=== PATIENT | female | born 1945 | race Caucasian/White ===

== ENCOUNTER 2020-06-01 11:40 | Inpatient (IN) | payer OTHER ==
[~2020-06-01] VITALS: Ht 167.6 cm; Wt 117.9 kg
[2020-06-01 12:14] LABS: HEMOGLOBIN 12.1 gm/dl (12.3-15.3); RED BLOOD COUNT 5.08 M/UL (4.00-5.10); WHITE BLOOD COUNT 8.5 K/UL (4.5-11.0)
[2020-06-01 12:40] LABS: BUN/CREATININE RATIO 18 (0-10)
[2020-06-01 22:44] LABS: HEMOGLOBIN 11.5 gm/dl (12.3-15.3); RED BLOOD COUNT 4.77 M/UL (4.00-5.10)
[2020-06-01 22:46] LABS: WHITE BLOOD COUNT 16.9 K/UL (4.5-11.0)
[2020-06-02 03:18] LABS: RED BLOOD COUNT 4.96 M/UL (4.00-5.10); WHITE BLOOD COUNT 18.6 K/UL (4.5-11.0)
--- NOTE | 2020-06-02 04:46 | NUR ---
06/01/20 2300 pT ARRIVED TO FLOOR BY WAY OF BED FROM SURGERY. PT AWAKE BUT SLIGHTLY DROWSY. EXTERNAL FIXATION NOTED TO RIGHT FOOT AND LEG. WOUND VAC IN PLACE BLOOD DRAINAGE NOTED TO WOUND VAC TUBING. PT DENIES ANY PAIN AT THIS TIME.
--- NOTE | 2020-06-02 04:48 | NUR ---
06/02/20 0001 ASSESSMENT PART 2 DONE AT THIS TIME UNABLE TO CHANGE TIME ON IT. ACCU CHECK 254, NO INSULIN GIVEN DUE TO PT HAS NOT EATEN. DENIES WANTING ANYTHING TO EAT.
--- NOTE | 2020-06-02 04:50 | NUR ---
06/01/20 2345 SCUD APPLIED TO RIGHT LEG.
--- NOTE | 2020-06-02 06:04 | NUR ---
06/01/20 0455 PT HAS NOT VOIDED. BLADDER SCAN SHOWED 529ML. [facility]
[2020-06-02] MEDS ORDERED: CATAPRES 0.1MG0.1 MG PO (09:46)
[2020-06-02] MEDS ORDERED: B-COMPLEX WITH1 EAC1 PO (09:48)
[2020-06-02] MEDS ORDERED: FOLIC ACID0.8 MG PO (09:48)
[2020-06-02] MEDS ORDERED: BENADRYL25 MG PO (09:49)
[2020-06-02] MEDS ORDERED: SYNTHROID150 MCG PO (09:50)
[2020-06-02] MEDS ORDERED: REQUIP0.25 MG PO (09:50)
[2020-06-02] MEDS ORDERED: LINZESS145 MCG PO (09:50)
[2020-06-02] MEDS ORDERED: AMIODARONE HCL200 MG PO (09:51)
[2020-06-02] MEDS ORDERED: TRELEGY ELLIPT1 EACH INH (09:51)
[2020-06-02] MEDS ORDERED: LIPITOR40 MG PO (09:52)
[2020-06-02] MEDS ORDERED: NEURONTIN300 MG PO (09:52)
[2020-06-02] MEDS ORDERED: ZYLOPRIM 100 M100 MG PO (09:53)
[2020-06-02] MEDS ORDERED: LOPRESSOR 50 MG50 MG PO (09:53)
[2020-06-02] MEDS ORDERED: PROTONIX40 MG PO (09:53)
[2020-06-02] MEDS ORDERED: SINGULAIR10 MG PO (09:54)
[2020-06-02] MEDS ORDERED: ELIQUIS2.5 MG PO (09:55)
[2020-06-02] MEDS ORDERED: ZANAFLEX4 MG PO (09:55)
[2020-06-02] MEDS ORDERED: AMARYL4 MG PO (10:08)
[2020-06-02] MEDS ORDERED: K-DUR TAB 20 M20 MEQ PO (10:15)
[2020-06-02] MEDS ORDERED: LASIX 40 MG TAB40 MG PO (10:22)
[2020-06-02] MEDS ORDERED: NOVOLOG MI100 UNIT/1 SC (10:26)
[2020-06-03 06:07] LABS: HEMOGLOBIN 9.2 gm/dl (12.3-15.3); RED BLOOD COUNT 3.86 M/UL (4.00-5.10); WHITE BLOOD COUNT 9.1 K/UL (4.5-11.0)
[2020-06-05 03:39] LABS: HEMOGLOBIN 9.1 gm/dl (12.3-15.3); RED BLOOD COUNT 3.81 M/UL (4.00-5.10)
[2020-06-05 03:44] LABS: WHITE BLOOD COUNT 6.8 K/UL (4.5-11.0)
[2020-06-08 03:49] LABS: RED BLOOD COUNT 3.82 M/UL (4.00-5.10)
[2020-06-08 04:25] LABS: BUN/CREATININE RATIO 14 (0-10)
[2020-06-09 10:01] LABS: HEMOGLOBIN 9.8 gm/dl (12.3-15.3); RED BLOOD COUNT 4.07 M/UL (4.00-5.10); WHITE BLOOD COUNT 7.8 K/UL (4.5-11.0)
[2020-06-11 03:55] LABS: HEMOGLOBIN 9.7 gm/dl (12.3-15.3); RED BLOOD COUNT 4.06 M/UL (4.00-5.10); WHITE BLOOD COUNT 7.4 K/UL (4.5-11.0)
--- NOTE | 2020-06-11 11:32 | NUR ---
PATIENT PULSE OX SEVERAL CHANGES FROM 70'S TO 80'S AND HAVE LOWEST TO G0'S. CONTACTED RESPIRATORY FOR ASSISTANCE DURING THIS TIME. REPORTED PATIENT TO DR. ALBA AND RECEIVED ORDER. PATIENT ON HIGH FLOW 12L OXYGEN AND NO S/SX OF RESPIRATORY INSUFFICIENCY AT THIS TIME. WILL CONT TO MONITOR
--- NOTE | 2020-06-11 12:10 | NUR ---
PATIENT BREATHING WITH NO DIFFICULTY, PULSE OX 93 HIGH FLOW 12 LITERSN IN PLACED.
--- NOTE | 2020-06-11 12:32 | NUR ---
reported dr. matos of abg result and stated will check the result himself
--- NOTE | 2020-06-11 12:36 | NUR ---
dr. matos called back and stated he will write order for patient to have bipap and for me to [id number] RT. notified RT and acknowledged
[2020-06-12 04:28] LABS: HEMOGLOBIN 9.3 gm/dl (12.3-15.3); RED BLOOD COUNT 3.95 M/UL (4.00-5.10); WHITE BLOOD COUNT 7.9 K/UL (4.5-11.0)
[2020-06-12 10:56] LABS: HEMOGLOBIN 9.1 gm/dl (12.3-15.3); RED BLOOD COUNT 3.94 M/UL (4.00-5.10); WHITE BLOOD COUNT 7.1 K/UL (4.5-11.0)
[2020-06-13 03:37] LABS: HEMOGLOBIN 9.1 gm/dl (12.3-15.3); RED BLOOD COUNT 3.92 M/UL (4.00-5.10); WHITE BLOOD COUNT 7.7 K/UL (4.5-11.0)
[2020-06-14 03:44] LABS: HEMOGLOBIN 8.9 gm/dl (12.3-15.3); RED BLOOD COUNT 3.76 M/UL (4.00-5.10)
[2020-06-15 06:00] LABS: HEMOGLOBIN 9.2 gm/dl (12.3-15.3); RED BLOOD COUNT 3.74 M/UL (4.00-5.10); WHITE BLOOD COUNT 8.1 K/UL (4.5-11.0)
[2020-06-15 06:21] LABS: BUN/CREATININE RATIO 17 (0-10)
[2020-06-16 03:08] LABS: HEMOGLOBIN 9.1 gm/dl (12.3-15.3); RED BLOOD COUNT 3.82 M/UL (4.00-5.10); WHITE BLOOD COUNT 8.3 K/UL (4.5-11.0)
[2020-06-17 05:01] LABS: HEMOGLOBIN 8.8 gm/dl (12.3-15.3); RED BLOOD COUNT 3.81 M/UL (4.00-5.10); WHITE BLOOD COUNT 7.3 K/UL (4.5-11.0)
[2020-06-18 05:39] LABS: BUN/CREATININE RATIO 24 (0-10)
--- NOTE | 2020-06-18 17:31 | NUR ---
CHANGED PT DRESSING TODAY BETADINE TO PIN SITES VASELINE GAUZE, KERLEX W/ KENYA WRAP APPLIED PT ALSO HAD STAGE 1 ON COCCYX CHANGED AND WAFFLE MATTRESS APPLIED.
[2020-06-19 03:53] LABS: HEMOGLOBIN 9.2 gm/dl (12.3-15.3); RED BLOOD COUNT 3.86 M/UL (4.00-5.10); WHITE BLOOD COUNT 6.5 K/UL (4.5-11.0)
[2020-06-21 05:56] LABS: BUN/CREATININE RATIO 18 (0-10)
[2020-06-22 04:43] LABS: BUN/CREATININE RATIO 20 (0-10)
[2020-06-25] MEDS ORDERED: HYDROCODON-ACE1 EAC2 PO (10:46)
[2020-06-25] MEDS ORDERED: DOCUSATE SODIU100 MG PO (10:46)
[2020-06-25] MEDS ORDERED: POLYETHYLENE GL17 GM PO (10:46)
[2020-06-25] MEDS ORDERED: FUROSEMIDE40 MG PO (10:46)
[2020-06-25] MEDS ORDERED: ELIQUIS2.5 MG PO (10:46)
[2020-08-18] MEDS ORDERED: AMIODARONE HCL200 MG PO (06:56)
[2020-08-18] MEDS ORDERED: ALLOPURINOL100 MG PO (06:56)
[2020-08-18] MEDS ORDERED: LINZESS145 MCG PO (06:57)
[2020-08-18] MEDS ORDERED: LIPITOR40 MG PO (06:57)
[2020-08-18] MEDS ORDERED: FOLIC ACID0.8 MG PO (06:57)
[2020-08-18] MEDS ORDERED: BENADRYL ALLERG25 MG PO (06:57)
[2020-08-18] MEDS ORDERED: [UNRECOGNIZED DRUG - CODE] SQ (06:58)
[2020-08-18] MEDS ORDERED: NOVOLIN 70100 UNIT/1 SQ (06:58)
[2020-08-18] MEDS ORDERED: PROTONIX 40 MG40 M1 PO (06:59)
[2020-08-18] MEDS ORDERED: ROPINIROLE HC0.25 MG PO (06:59)
[2020-08-18] MEDS ORDERED: POTASSIUM CHLO20 ME1 PO (06:59)
[2020-08-18] MEDS ORDERED: SINGULAIR10 MG PO (07:00)
[2020-08-18] MEDS ORDERED: TRELEGY ELLIPT1 EACH INH (07:00)
[2020-08-18] MEDS ORDERED: SYNTHROID150 MCG PO (07:00)
[2020-08-18] MEDS ORDERED: VITAMIN B COMP1 EAC1 PO (07:00)
[2020-08-18] MEDS ORDERED: ZANAFLEX4 MG PO (07:00)
[2020-08-18] MEDS ORDERED: ELIQUIS5 MG PO (07:01)
[2020-08-18] MEDS ORDERED: COLACE 100MG C100 MG PO (07:01)
[2020-08-18] MEDS ORDERED: GLIMEPIRIDE4 MG PO (07:01)
[2020-08-18] MEDS ORDERED: LOPRESSOR50 MG PO (07:02)
[2020-08-18] MEDS ORDERED: CLONIDINE HCL0.1 MG PO (07:02)
[2020-08-18] MEDS ORDERED: LASIX40 MG PO (07:02)
[2020-08-18] MEDS ORDERED: NEURONTIN300 MG PO (07:03)
[2020-08-18] MEDS ORDERED: BUSPIRONE HCL5 MG PO (07:03)
[2020-08-18] MEDS ORDERED: DULCOLAX SUPPOSITORY PO (07:03)
[2020-08-18] MEDS ORDERED: MIRALAX17 GM PO (07:04)
[2020-08-18] MEDS ORDERED: COMBIVENT RESPIM4 GM INH (07:04)
[2020-08-18] MEDS ORDERED: HYDROCODON-ACE1 EAC6 PO (07:16)
== END 2020-06-25 19:33 | DRG 463 ==
LOC: ER1 11:40 → CDU 16:03 → M/S 16:03
PROVIDERS: Internal Medicine; Internal Medicine Pulmonary Disease; Orthopaedic Surgery; Physician Assistant; Student in an Organized Health Care Education/Training Program; ADMIT Internal Medicine Infectious Disease
PROC: 0HRMXK3 Replacement of Right Foot Skin with Nonautologous Tissue Substitute, Full Thickness, External Approach (ICD-10-PCS; principal; 2020-06-01 19:00)
PROC: 0QSG04Z Reposition Right Tibia with Internal Fixation Device, Open Approach (ICD-10-PCS; 2020-06-01 19:00)
DX: S82.851B Displaced trimalleolar fracture of right lower leg, initial encounter for open fracture type I or II (principal); J96.21 Acute and chronic respiratory failure with hypoxia; J96.22 Acute and chronic respiratory failure with hypercapnia; J18.9 Pneumonia, unspecified organism; N17.9 Acute kidney failure, unspecified; J44.0 Chronic obstructive pulmonary disease with (acute) lower respiratory infection; J44.1 Chronic obstructive pulmonary disease with (acute) exacerbation; J98.11 Atelectasis; W01.0XXA Fall on same level from slipping, tripping and stumbling without subsequent striking against object, initial encounter; I12.9 Hypertensive chronic kidney disease with stage 1 through stage 4 chronic kidney disease, or unspecified chronic kidney disease; E11.22 Type 2 diabetes mellitus with diabetic chronic kidney disease; G47.33 Obstructive sleep apnea (adult) (pediatric); E78.5 Hyperlipidemia, unspecified; I48.91 Unspecified atrial fibrillation; E03.9 Hypothyroidism, unspecified; E11.42 Type 2 diabetes mellitus with diabetic polyneuropathy; E66.01 Morbid (severe) obesity due to excess calories; I87.8 Other specified disorders of veins; N18.30 Chronic kidney disease, stage 3 unspecified; E11.40 Type 2 diabetes mellitus with diabetic neuropathy, unspecified; K59.00 Constipation, unspecified; Z68.30 Body mass index [BMI] 30.0-30.9, adult; Z79.01 Long term (current) use of anticoagulants; Y93.89 Activity, other specified; Y92.89 Other specified places as the place of occurrence of the external cause; Z90.49 Acquired absence of other specified parts of digestive tract; Z90.710 Acquired absence of both cervix and uterus; Z83.3 Family history of diabetes mellitus
CPT/HCPCS: ECHO; 0240U; 27788; 36415; 36600; 70450; 71045; 71250; 72125; 72128; 72131; 72170; 73590; 73600; 76000; 80048; 80053; 80202; 82803; 82962; 83605; 85025; 85610; 85730; 86140; 86850; 86900; 86901; 90471; 90714; 90715; 93005; 93306; 93971; 94640; 94660; 94664; 94668; 94760; 97110; 97110-GP-CQ; 97162; 97167; 97530; 97530-GP-CQ; 99285; A6212; C1713; G0480; J0295; J0690; J1100; J1580; J1940; J2001; J2185; J2250; J2270; J2405; J2550; J2704; J3010; J3370; J7030; J7070; J7120; Q4133; U0002

== ENCOUNTER → 2020-08-18 | Day surgery (SDC) | payer OTHER ==
[~2020-08-18] MED LIST: ALLOPURINOL100 MG PO; AMARYL4 MG PO; AMIODARONE HCL200 MG PO; B-COMPLEX WITH1 EAC1 PO; BENADRYL ALLERG25 MG PO; BENADRYL25 MG PO; BUSPIRONE HCL5 MG PO; CATAPRES 0.1MG0.1 MG PO; CLONIDINE HCL0.1 MG PO; COLACE 100MG C100 MG PO; COMBIVENT RESPIM4 GM INH; DOCUSATE SODIU100 MG PO; DULCOLAX SUPPOSITORY PO; ELIQUIS2.5 MG PO; ELIQUIS5 MG PO; FOLIC ACID0.8 MG PO; FUROSEMIDE40 MG PO; GLIMEPIRIDE4 MG PO; HYDROCODON-ACE1 EAC2 PO; HYDROCODON-ACE1 EAC6 PO; K-DUR TAB 20 M20 MEQ PO; LASIX 40 MG TAB40 MG PO; LASIX40 MG PO; LINZESS145 MCG PO; LIPITOR40 MG PO; LOPRESSOR 50 MG50 MG PO; LOPRESSOR50 MG PO; MIRALAX17 GM PO; NEURONTIN300 MG PO; NOVOLIN 70100 UNIT/1 SQ; NOVOLOG MI100 UNIT/1 SC; POLYETHYLENE GL17 GM PO; POTASSIUM CHLO20 ME1 PO; PROTONIX 40 MG40 M1 PO; PROTONIX40 MG PO; REQUIP0.25 MG PO; ROPINIROLE HC0.25 MG PO; SINGULAIR10 MG PO; SYNTHROID150 MCG PO; TRELEGY ELLIPT1 EACH INH; VITAMIN B COMP1 EAC1 PO; ZANAFLEX4 MG PO; ZYLOPRIM 100 M100 MG PO; [UNRECOGNIZED DRUG - CODE] SQ
== END | disposition home or self-care (01) ==
LOC: OR 06:24
PROVIDERS: Orthopaedic Surgery
DX: S82.851A Displaced trimalleolar fracture of right lower leg, initial encounter for closed fracture (principal); E11.40 Type 2 diabetes mellitus with diabetic neuropathy, unspecified; G47.33 Obstructive sleep apnea (adult) (pediatric); I48.91 Unspecified atrial fibrillation; J44.9 Chronic obstructive pulmonary disease, unspecified; J96.11 Chronic respiratory failure with hypoxia; I10 Essential (primary) hypertension; E78.5 Hyperlipidemia, unspecified; E03.9 Hypothyroidism, unspecified; K21.9 Gastro-esophageal reflux disease without esophagitis; E66.01 Morbid (severe) obesity due to excess calories; Z66 Do not resuscitate; Z79.01 Long term (current) use of anticoagulants; Z79.4 Long term (current) use of insulin; Z79.891 Long term (current) use of opiate analgesic; Z79.899 Other long term (current) drug therapy; Z20.822 Contact with and (suspected) exposure to COVID-19
CPT/HCPCS: 36415; 73630; 76000; 80048; 82962; 93005; J0690; J1100; J2001; J2405; J2704; J3010; J7030; J7120; U0002

== ENCOUNTER → 2020-09-10 | Outpatient (CLI) | payer OTHER ==
[~2020-09-10] MED LIST changes: +ACETAMINOPHEN500 MG PO; +CEFDINIR300 MG PO; +CIPROFLOXACIN250 MG PO; +FEROSUL325 MG PO; +GERI-KOT8.6 MG PO; +LEXAPRO10 MG PO; +NOVOLOG 10100 UNITS2 INJ; +POTASSIUM CHLO20 ME2 PO; +PROCEL1 EACH PO; +SEMGLEE100 UNIT/1 SQ; +VITAMIN C250 MG PO
== END ==
LOC: KOH-I 13:58
DX: E11.9 Type 2 diabetes mellitus without complications (principal); M79.604 Pain in right leg
CPT/HCPCS: 93926; 93971

== ENCOUNTER 2020-11-10 18:11 | Inpatient (IN) | payer OTHER ==
[~2020-11-10] VITALS: Ht 167.6 cm; Wt 119.7 kg
[~2020-11-10 18:11] MED LIST changes: -ACETAMINOPHEN500 MG PO; -CEFDINIR300 MG PO; -CIPROFLOXACIN250 MG PO; -FEROSUL325 MG PO; -GERI-KOT8.6 MG PO; -LEXAPRO10 MG PO; -NOVOLOG 10100 UNITS2 INJ; -POTASSIUM CHLO20 ME2 PO; -PROCEL1 EACH PO; -SEMGLEE100 UNIT/1 SQ; -VITAMIN C250 MG PO
[2020-11-10 19:45] LABS: RED BLOOD COUNT 5.09 M/UL (4.00-5.10); WHITE BLOOD COUNT 7.5 K/UL (4.5-11.0)
[2020-11-11] MEDS ORDERED: FEROSUL325 MG PO (00:56)
[2020-11-11] MEDS ORDERED: LEXAPRO10 MG PO (00:57)
[2020-11-11] MEDS ORDERED: POTASSIUM CHLO20 ME2 PO (01:00)
[2020-11-11] MEDS ORDERED: VITAMIN C250 MG PO (01:02)
[2020-11-11] MEDS ORDERED: CEFDINIR300 MG PO (01:04)
[2020-11-11] MEDS ORDERED: CIPROFLOXACIN250 MG PO (01:05)
[2020-11-11] MEDS ORDERED: PROCEL1 EACH PO (01:10)
[2020-11-11] MEDS ORDERED: SEMGLEE100 UNIT/1 SQ (01:11)
[2020-11-11] MEDS ORDERED: NOVOLOG 10100 UNITS2 INJ (01:13)
[2020-11-11] MEDS ORDERED: ACETAMINOPHEN500 MG PO (01:15)
[2020-11-11] MEDS ORDERED: MIRALAX17 GM PO (01:17)
[2020-11-11] MEDS ORDERED: GERI-KOT8.6 MG PO (01:18)
[2020-11-11 10:44] LABS: HEMOGLOBIN 11.6 gm/dl (12.3-15.3); RED BLOOD COUNT 5.04 M/UL (4.00-5.10); WHITE BLOOD COUNT 6.6 K/UL (4.5-11.0)
[2020-11-11 11:11] LABS: BUN/CREATININE RATIO 22 (0-10)
[2020-11-12 03:44] LABS: RED BLOOD COUNT 4.86 M/UL (4.00-5.10)
[2020-11-12 03:45] LABS: WHITE BLOOD COUNT 9.1 K/UL (4.5-11.0)
[2020-11-12 16:00] LABS: HEMOGLOBIN 10.2 gm/dl (12.3-15.3); WHITE BLOOD COUNT 9.5 K/UL (4.5-11.0)
[2020-11-12 16:27] LABS: RED BLOOD COUNT 4.37 M/UL (4.00-5.10)
[2020-11-13 05:53] LABS: BUN/CREATININE RATIO 35 (0-10)
[2020-11-14 04:03] LABS: BUN/CREATININE RATIO 42 (0-10)
[2020-11-15 07:20] LABS: HEMOGLOBIN 11.4 gm/dl (12.3-15.3); WHITE BLOOD COUNT 7.3 K/UL (4.5-11.0)
[2020-11-15 07:35] LABS: RED BLOOD COUNT 5.04 M/UL (4.00-5.10)
[2020-11-15 09:19] LABS: BUN/CREATININE RATIO 21 (0-10)
[2020-11-16 06:37] LABS: HEMOGLOBIN 11.5 gm/dl (12.3-15.3); RED BLOOD COUNT 4.92 M/UL (4.00-5.10); WHITE BLOOD COUNT 6.4 K/UL (4.5-11.0)
[2020-11-16 07:06] LABS: BUN/CREATININE RATIO 34 (0-10)
[2020-11-17 06:40] LABS: BUN/CREATININE RATIO 35 (0-10)
[2020-11-17 07:11] LABS: RED BLOOD COUNT 4.73 M/UL (4.00-5.10); WHITE BLOOD COUNT 6.2 K/UL (4.5-11.0)
[2020-11-17] MEDS ORDERED: HYDROCODON-ACE1 EAC6 PO (12:20)
[2020-11-17] MEDS ORDERED: NEURONTIN300 MG PO (12:20)
--- NOTE | 2020-11-17 14:45 | NUR ---
TRIED TO CALL [facility] TWICE, LEFT TWO MESSAGES. WILL ATTEMPT TO CALL BACK AGAIN AT NEXT FREE MOMMENT
--- NOTE | 2020-11-17 15:05 | NUR ---
GAVE REPORT TO YENI.
== END 2020-11-17 16:09 | DRG 856 ==
LOC: ER1 18:11 → CDU 20:05 → MED SURG 4 20:05
PROVIDERS: Internal Medicine; Internal Medicine Infectious Disease; Orthopaedic Surgery; Student in an Organized Health Care Education/Training Program; ADMIT Internal Medicine
PROC: 0SPG04Z Removal of Internal Fixation Device from Left Ankle Joint, Open Approach (ICD-10-PCS; principal; 2020-11-10)
DX: T81.41XA Infection following a procedure, superficial incisional surgical site, initial encounter (principal); K85.90 Acute pancreatitis without necrosis or infection, unspecified; L03.115 Cellulitis of right lower limb; E66.2 Morbid (severe) obesity with alveolar hypoventilation; J96.11 Chronic respiratory failure with hypoxia; M00.871 Arthritis due to other bacteria, right ankle and foot; Z20.822 Contact with and (suspected) exposure to COVID-19; I48.0 Paroxysmal atrial fibrillation; J44.9 Chronic obstructive pulmonary disease, unspecified; I95.9 Hypotension, unspecified; E86.1 Hypovolemia; G62.9 Polyneuropathy, unspecified; I10 Essential (primary) hypertension; E11.42 Type 2 diabetes mellitus with diabetic polyneuropathy; Y83.8 Other surgical procedures as the cause of abnormal reaction of the patient, or of later complication, without mention of misadventure at the time of the procedure; Z87.81 Personal history of (healed) traumatic fracture; Z79.4 Long term (current) use of insulin; Z91.81 History of falling; Z79.2 Long term (current) use of antibiotics; Z79.01 Long term (current) use of anticoagulants; Z79.82 Long term (current) use of aspirin; Z79.899 Other long term (current) drug therapy; Z90.49 Acquired absence of other specified parts of digestive tract; Z90.710 Acquired absence of both cervix and uterus; Z83.3 Family history of diabetes mellitus
CPT/HCPCS: 36415; 73610; 73720; 74018; 76000; 80048; 80053; 80202; 81001; 82150; 82550; 82553; 82565; 82962; 83690; 83735; 84100; 84484; 85025; 85027; 85652; 86140; 87040; 87070; 87081; 87205; 93005; 94640; 94660; 94760; 99285; A6212; A9577; G0378; J0690; J0692; J0780; J1100; J2001; J2405; J2550; J2704; J2795; J3010; J3370; J7030; J7070; J7120; U0002; U0003

== ENCOUNTER → 2021-04-27 | Day surgery (SDC) | payer OTHER ==
[~2021-04-27] VITALS: Ht 167.6 cm; Wt 115.2 kg
[~2021-04-27] MED LIST changes: +ACETAMINOPHEN500 MG PO; +ALDACTONE25 MG PO; +AMITIZA8 MCG PO; +ANUSOL-HC CREAM30 GM PR; +CEFDINIR300 MG PO; +CEFTRIAXONE1 GM INJ; +CIPROFLOXACIN250 MG PO; +DOXYCYCLINE HY100 M2 PO; +DULCOLAX5 MG PO; +ENTRESTO 24 MG1 EACH PO; +FEROSUL325 MG PO; +GERI-KOT8.6 MG PO; +HYDROCODONE-AC1 EAC1 PO; +LEXAPRO10 MG PO; +NEURONTIN400 MG PO; +NOVOLOG 10100 UNITS2 INJ; +POTASSIUM CHLO20 ME2 PO; +PROCEL1 EACH PO; +SEMGLEE100 UNIT/1 SQ; +VITAMIN C250 M1 PO; +VITAMIN C250 MG PO
[2021-04-27 10:43] LABS: HEMOGLOBIN 12.8 gm/dl (12.3-15.3); RED BLOOD COUNT 5.21 M/UL (4.00-5.10); WHITE BLOOD COUNT 7.6 K/UL (4.5-11.0)
== END | disposition home or self-care (01) ==
LOC: OR 09:25
PROVIDERS: Orthopaedic Surgery
DX: T84.84XA Pain due to internal orthopedic prosthetic devices, implants and grafts, initial encounter (principal); E11.621 Type 2 diabetes mellitus with foot ulcer; L97.419 Non-pressure chronic ulcer of right heel and midfoot with unspecified severity; E11.40 Type 2 diabetes mellitus with diabetic neuropathy, unspecified; G47.33 Obstructive sleep apnea (adult) (pediatric); I48.91 Unspecified atrial fibrillation; J44.9 Chronic obstructive pulmonary disease, unspecified; J96.11 Chronic respiratory failure with hypoxia; I10 Essential (primary) hypertension; E78.5 Hyperlipidemia, unspecified; E03.9 Hypothyroidism, unspecified; E66.01 Morbid (severe) obesity due to excess calories; Z79.01 Long term (current) use of anticoagulants; Z79.4 Long term (current) use of insulin; Z79.899 Other long term (current) drug therapy; Z20.822 Contact with and (suspected) exposure to COVID-19
CPT/HCPCS: 36415; 71045; 73650; 76000; 80048; 82962; 85025; 87070; 87205; 93005; A6212; J0690; J1100; J1170; J2001; J2370; J2405; J2704; J3010; J7030; J7120